=== PATIENT | female | born 1960 ===

== ENCOUNTER → 2016-09-06 | Outpatient (CLI) | payer BC | LOC: COL.RAD 12:45 | DX: N94.10 Unspecified dyspareunia (principal) ==

== ENCOUNTER → 2018-02-21 | Outpatient (CLI) | payer BC | LOC: MC.RAD 15:36 | DX: Z12.31 Encounter for screening mammogram for malignant neoplasm of breast (principal) ==

== ENCOUNTER → 2019-03-13 | Outpatient (CLI) | payer BC | LOC: MC.RAD 15:00 | DX: Z12.31 Encounter for screening mammogram for malignant neoplasm of breast (principal) ==

== ENCOUNTER → 2019-11-29 | Outpatient (CLI) | payer BC | LOC: COL.RAD 07:46 | DX: R10.12 Left upper quadrant pain (principal); R74.0 Nonspecific elevation of levels of transaminase and lactic acid dehydrogenase [LDH] ==

== ENCOUNTER → 2020-02-20 | Outpatient (CLI) | payer BC | LOC: COL.RAD 11:11 | DX: R10.12 Left upper quadrant pain (principal) | CPT/HCPCS: Q9967 ==

== ENCOUNTER → 2020-04-24 | Outpatient (CLI) | payer BC | LOC: MC.RAD 16:13 | DX: Z12.31 Encounter for screening mammogram for malignant neoplasm of breast (principal) ==

== ENCOUNTER → 2021-05-13 | Outpatient (CLI) | payer BC | LOC: MC.RAD 09:29 | DX: Z12.31 Encounter for screening mammogram for malignant neoplasm of breast (principal) ==

== ENCOUNTER → 2023-08-16 | Outpatient (CLI) | payer BC | LOC: MC.RAD 07:50 | DX: Z12.31 Encounter for screening mammogram for malignant neoplasm of breast (principal) ==